=== PATIENT | female | born 1960 | race Caucasian/White ===

== ENCOUNTER → 2021-10-05 14:32 | Outpatient (CLI) | payer BC, SELFPAY ==
--- NOTE | ~2021-10-05 | MM_ITS ---
EXAMINATION: MM screening [facility] BI w eduardo HISTORY: Screening TECHNIQUE: Craniocaudal and mediolateral oblique 3-D tomosynthesis images were obtained and synthetic 2-D images were generated. CAD analysis was submitted and interpreted. COMPARISON: Comparison to multiple prior studies sequentially, with oldest reviewed study dated 01/17. BREAST PARENCHYMAL COMPOSITION: There are scattered areas of fibroglandular density. FINDINGS: There is no evidence of suspicious mass, calcification, or architectural distortion to sugg est malignancy in either breast. There has been no suspicious interval change. IMPRESSION: 1. No mammographic evidence of malignancy. 2. Recommend routine screening mammography in one year. BI-RADS Category 1: Negative Reviewed, dictated and finalized at location A.
== END ==
PROVIDERS: PCP Family Medicine; Visit Provider Physician Assistant
DX: Z12.31 Encounter for screening mammogram for malignant neoplasm of breast (principal)
CPT/HCPCS: 77063; 77067

== ENCOUNTER → 2021-12-27 17:18 | Outpatient (CLI) | payer BC, SELFPAY ==
--- NOTE | ~2021-12-27 | XR_ITS ---
XR shoulder RT min 2V DATE: 12/27/2021 17:35 INDICATION: Right shoulder pain TECHNIQUE: 4 views COMPARISON: None FINDINGS: There is osteopenia. No fracture or dislocation, periosteal reaction or bone destruction is detected. No abnormal soft tissue calcification of the right shoulder. Mild levoscoliosis of the upp er thoracic spine. IMPRESSION: Osteopenia. Reviewed, dictated and finalized at location B. IMPRESSION: Osteopenia.
== END ==
PROVIDERS: PCP Physician Assistant; Visit Provider Physician Assistant
DX: M85.811 Other specified disorders of bone density and structure, right shoulder (principal)
CPT/HCPCS: 73030

== ENCOUNTER → 2022-11-14 14:22 | Outpatient (CLI) | payer BC, SELFPAY ==
--- NOTE | ~2022-11-14 | XR_ITS ---
EXAM: XR knee LT 3V DATE: 11/14/2022 14:43 HISTORY: Pain in medial left knee x 2 mos w/o injury . COMPARISON: None available. FINDINGS: Normal mineralization. No fracture or dislocation. No lytic or blastic lesion. Moderate me dial joint space narrowing. Tricompartment osteophytosis, moderate in the patellofemoral compartment. Quadriceps enthesopathy. Small volume joint fluid. No erosion or periosteal change. Soft tissues wit hin normal limits. IMPRESSION: Moderate left knee osteoarthritis. Reviewed, dictated and finalized at location K.
== END ==
PROVIDERS: PCP Physician Assistant; Visit Provider Physician Assistant
DX: M17.12 Unilateral primary osteoarthritis, left knee (principal)
CPT/HCPCS: 73562

== ENCOUNTER → 2023-02-06 10:17 | Outpatient (CLI) | payer BC, SELFPAY ==
--- NOTE | ~2023-02-06 | MM_ITS ---
EXAMINATION: MM screening [facility] BI w eduardo HISTORY: Screening mammogram TECHNIQUE: Craniocaudal and mediolateral oblique 3-D tomosynthesis images were obtained and synthetic 2-D images were generated. CAD analysis was submitted and interpreted. COMPARISON: 10/05/2021, 10/13/2016 bilateral screening mammogram examinations BREAST PARENCHYMAL COMPOSITION: There are scattered areas of fibroglandular density. FINDINGS: There is no evidence of suspicious mass, calcification, or architectural distortion to sugg est malignancy in either breast. There has been no suspicious interval change. IMPRESSION: 1. No mammographic evidence of malignancy. 2. Recommend routine screening mammography in one year. BI-RADS Category 1: Negative Reviewed, dictated and finalized at location A.
== END ==
PROVIDERS: PCP Physician Assistant; Visit Provider Physician Assistant
DX: Z12.31 Encounter for screening mammogram for malignant neoplasm of breast (principal)
CPT/HCPCS: 77063; 77067